=== PATIENT | female | born 2000 | race Caucasian/White ===

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

== ENCOUNTER 2018-01-21 13:23 | Emergency (ER) | payer SELFPAY ==
[2018-01-21 13:55] VITALS: BP 114/68
--- NOTE | 2018-01-21 15:26 | UC ---
Throat Pain/Nasal Vinh HPI - HPI Summary HPI Summary: Patient states she started with cold-like symptoms, cough and sore throat for a few days. Denies fever. States she had a bacterial pharyngitis a month ago. Denies taking any medications, Tobacco about 10 cigarettes a day. LMD today - History of Current Complaint Chief Complaint: UCGeneralIllness Stated Complaint: COUGH,SORE THROAT Time Seen by Provider: 01/21/18 15:02 Hx Obtained From: Patient Hx Last Menstrual Period: 01/21/18 ?: No Onset/Duration: Gradual Onset, Lasting Days Severity: Mild Pain Intensity: 0 Cough: Nonproductive Associated Signs & Symptoms: Positive: Nasal Discharge Related History: Smoking - Epiglottits Risk Factors Epiglottis Risk Factors: Negative - Allergies/Home Medications Allergies/Adverse Reactions: Allergies Allergy/AdvReac Type Severity Reaction Status Date / Time No Known Allergies Allergy Verified 01/21/18 13:47 Home Medications: Home Medications Phenylephrine HCl [Nasal [place]] 30 ml NS ONCE 01/21/18 [History Confirmed ] PMH/Surg Hx/FS Hx/Imm Hx Previously Healthy: Yes - Surgical History Surgical History: Yes Surgery Procedure, Year, and Place: CYST REMOVED FROM THROAT 2001 - Family History Known Family History: Positive: Other - depression, ETOH abuse, - Social History Alcohol Use: Daily Alcohol Amount: 1 drink/ day Substance Use Type: Marijuana Substance Use Comment - Amount & Last Used: smoke 1 bowl daily Smoking Status (MU): Heavy Every Day Tobacco Smoker Amount Used/How Often: 10 cigs/ day Household Exposure Type: Cigarettes - Immunization History Most Recent Influenza Vaccination: none recently Vaccination Up to Date: Yes Review of Systems ENT: Sore Throat, Nasal Discharge Respiratory: Cough All Other Systems Reviewed And Are Negative: Yes Physical Exam Triage Information Reviewed: Yes Appearance: Well-Appearing, Well-Nourished Vital Signs: Initial Vital Signs Temp 99.3 F 01/21/18 13:49 Pulse 86 01/21/18 13:49 Resp 16 01/21/18 13:49 BP 114/68 01/21/18 13:49 Pulse Ox 100 01/21/18 13:49 Vital Signs Reviewed: Yes Eyes: Positive: Conjunctiva Clear ENT: Positive: Normal ENT inspection, Pharynx normal, Nasal congestion, TMs normal Neck exam: Normal Neck: Positive: Supple, Nontender, No Lymphadenopathy Respiratory: Positive: Chest non-tender, Lungs clear, Normal breath sounds, No respiratory distress Cardiovascular: Positive: RRR, No Murmur, Pulses Normal, Brisk Capillary Refill Abdomen Description: Positive: Nontender Bowel Sounds: Positive: Present Throat Pain/Nasal Course/Dx - Course Course Of Treatment: Viral URI, continue oral hydration, tylenol if needed for myalgias/pain/fever more than 101.5F. - Differential Dx/Diagnosis Provider Diagnoses: viral URI Discharge - Discharge Plan Condition: Stable Disposition: HOME Patient Education Materials: How to Stop Smoking (ED), Viral Syndrome (ED) Forms: *Work Release Referrals: Miguel Angel Fabian MD [Primary Care Provider] -
== END 2018-01-21 15:38 | disposition home or self-care (01) ==
LOC: UCEAST 13:23
DX: J06.9 Acute upper respiratory infection, unspecified (principal); F17.210 Nicotine dependence, cigarettes, uncomplicated
CPT/HCPCS: 87651; 99211; G0463

== ENCOUNTER 2018-01-26 16:03 | Emergency (ER) | payer SELFPAY ==
[2018-01-26 16:48] VITALS: BP 112/56
--- NOTE | 2018-01-26 19:05 | UC ---
Raisa Ley Rebecca, scribed for Allan Gandhi MD on 01/26/18 at 1734 . Ear Complaint HPI - HPI Summary HPI Summary: Pt is a 17 y/o F who presents to [facility] c/o L ear pain. Pt reports that 5 days ago she had a Dx of viral URI, which has improved, though the patient began experiencing left ear pain this morning. Upon taking Ibuprofen, pain is now moderate, ranked 5/10. Sx alleviated by Ibuprofen, aggravated by nothing. Denies ear discharge, fever and difficulty swallowing. Is currently on menstrual period. PSHx tonsillectomy. SHx current smoker. - History of Current Complaint Chief Complaint: UCGeneralIllness Stated Complaint: EAR PAIN Time Seen by Provider: 01/26/18 16:55 Hx Obtained From: Patient Hx Last Menstrual Period: 01/22/18 Onset/Duration: Lasting Days - This morning, Still Present Severity Currently: Moderate Pain Intensity: 5 Pain Scale Used: 0-10 Numeric Aggravating Factors: Nothing Alleviating Factors: OTC Meds Associated Signs/Symptoms: Negative: Discharge Related History: Smoking - Allergies/Home Medications Allergies/Adverse Reactions: Allergies Allergy/AdvReac Type Severity Reaction Status Date / Time No Known Allergies Allergy Verified 01/26/18 16:42 Home Medications: Home Medications Ibuprofen TAB* [Motrin TAB* 800 MG] 800 mg PO ONCE 01/26/18 [History Confirmed 01/26/18] PMH/Surg Hx/FS Hx/Imm Hx - Additional Past Medical History Additional PMH: No PMHx HTN, DM, CAD - Surgical History Surgical History: Yes Surgery Procedure, Year, and Place: CYST REMOVED FROM THROAT 2001 - Family History Known Family History: Positive: Other - depression, ETOH abuse - Social History Alcohol Use: Daily Alcohol Amount: 1 drink/ day Substance Use Type: Marijuana Substance Use Comment - Amount & Last Used: smoke 1 bowl daily Smoking Status (MU): Heavy Every Day Tobacco Smoker Amount Used/How Often: 10 cigs/ day Household Exposure Type: Cigarettes - Immunization History Most Recent Influenza Vaccination: none recently Vaccination Up to Date: Yes Review of Systems Constitutional: Negative Skin: Negative Eyes: Negative ENT: Ear Ache - Left Respiratory: Negative Cardiovascular: Negative Gastrointestinal: Negative Genitourinary: Negative Motor: Negative Neurovascular: Negative Musculoskeletal: Negative Neurological: Negative Psychological: Negative All Other Systems Reviewed And Are Negative: Yes Physical Exam - Summary Physical Exam Summary: VITAL SIGNS: Reviewed. GENERAL: ~Patient is a well developed and nourished female who is lying comfortable in the stretcher. ~Patient is not in any acute respiratory distress. HEAD AND FACE: Normocephalic EYES: PERRLA, EOMI x 2. EARS: Hearing grossly intact. Left TM is erythematous and bulging. MOUTH: Oropharynx within normal limits. NECK: Supple, trachea is midline, no adenopathy, no JVD, no carotid bruit. CHEST: Symmetric, no tenderness at palpation LUNGS: Clear to auscultation bilaterally. No wheezing or crackles. CVS: Regular rate and rhythm, S1 and S2 present, no murmurs or gallops appreciated. ABDOMEN: Soft, non-tender. Bowel sounds are normal. No abdominal abnormal pulsations. EXTREMITIES: Full ROM in all major joints, no edema, no cyanosis or clubbing. NEURO: Alert and oriented x 3. No acute neurological deficits. Speech is normal and follows commands. SKIN: Dry and warm Triage Information Reviewed: Yes Vital Signs: Initial Vital Signs Temp 98.8 F 01/26/18 16:43 Pulse 72 01/26/18 16:43 Resp 18 01/26/18 16:43 BP 112/56 01/26/18 16:43 Pulse Ox 99 01/26/18 16:43 Vital Signs Reviewed: Yes Ear Complaint Course/Dx - Course Course Of Treatment: Pt is a 17 y/o F who presents to [facility] c/o L ear pain. Pt reports that 5 days ago she had a Dx of viral URI, which has improved, though the patient began experiencing left ear pain this morning. Upon taking Ibuprofen , pain is now moderate, ranked 5/10. Sx alleviated by Ibuprofen. Denies ear discharge, fever and difficulty swallowing. Is currently on menstrual period. PSHx tonsillectomy. SHx current smoker. PE reveals erythematous and bulging TM on the left side. Pt will be D/C to home with Dx of ear infection with Rx for amoxicillin and a followup with her PCP. She understands and agrees. - Differential Dx/Diagnosis Provider Diagnoses: Ear infection. Discharge - Sign-Out/Discharge Documenting (check all that apply): Discharge - Discharge Plan Condition: Stable Disposition: HOME Prescriptions: Amoxicillin PO (*) [Amoxicillin 875 MG (*)] 875 mg PO BID #20 tab Patient Education Materials: Ear Infection (ED) Referrals: Miguel Angel Fabian MD [Primary Care Provider] - Additional Instructions: Take medications as instructed Increase your fluid intake Return to the UC if symptoms worsen The documentation as recorded by the Raisa hough Rebecca accurately reflects the service I personally performed and the decisions made by me, Allan Gandhi MD.
== END 2018-01-26 17:13 | disposition home or self-care (01) ==
LOC: UCEAST 16:03
DX: H66.90 Otitis media, unspecified, unspecified ear (principal); F17.210 Nicotine dependence, cigarettes, uncomplicated; Z86.19 Personal history of other infectious and parasitic diseases
CPT/HCPCS: 99212; G0463

== ENCOUNTER 2018-02-02 18:43 | Emergency (ER) | payer SELFPAY ==
[2018-02-02 19:35] VITALS: BP 108/65
--- NOTE | 2018-02-02 19:35 | UC ---
Abdominal Pain Female HPI - HPI Summary HPI Summary: Patient to urgent care tonight complains of white vaginal discharge and itching. Also is complaining of frequent vomiting - History of Current Complaint Chief Complaint: UCGU Stated Complaint: VOMITING,PERSONAL Time Seen by Provider: 02/02/18 19:31 Hx Obtained From: Patient Hx Last Menstrual Period: 01/22/18 ?: Yes Onset/Duration: Sudden Onset - After treatment of otitis media with amoxicillin vaginal symptoms began Timing: Constant Severity Initially: Moderate Severity Currently: Moderate Radiates: No Character: Cramping Aggravating Factor(s): Food Alleviating Factor(s): Nothing Associated Signs and Symptoms: Positive: Nausea, Vomiting Allergies/Adverse Reactions: Allergies Allergy/AdvReac Type Severity Reaction Status Date / Time No Known Allergies Allergy Verified 02/02/18 19:35 PMH/Surg Hx/FS Hx/Imm Hx Previously Healthy: Yes - Surgical History Surgical History: Yes Surgery Procedure, Year, and Place: CYST REMOVED FROM THROAT 2001 - Family History Known Family History: Positive: Other - depression, ETOH abuse - Social History Occupation: Unemployed Lives: With Family Alcohol Use: Daily Alcohol Amount: 1 drink/ day Substance Use Type: Marijuana Substance Use Comment - Amount & Last Used: smoke 1 bowl daily Smoking Status (MU): Heavy Every Day Tobacco Smoker Amount Used/How Often: 10 cigs/ day Household Exposure Type: Cigarettes Cessation Counseling: Patient Advised to Stop - Immunization History Most Recent Influenza Vaccination: none recently Vaccination Up to Date: Yes Review of Systems Constitutional: Negative Skin: Negative Eyes: Negative ENT: Negative Respiratory: Negative Cardiovascular: Negative Gastrointestinal: Vomiting, Nausea Genitourinary: Negative Motor: Negative Neurovascular: Negative Musculoskeletal: Negative Neurological: Negative Psychological: Negative Is Patient Immunocompromised?: No All Other Systems Reviewed And Are Negative: Yes Physical Exam Triage Information Reviewed: Yes Appearance: Well-Appearing, No Pain Distress, Well-Nourished Vital Signs Reviewed: Yes Eye Exam: Normal Eyes: Positive: Conjunctiva Clear ENT Exam: Normal ENT: Positive: Normal ENT inspection, Hearing grossly normal - Was incredibly, Pharynx normal, Uvula midline. Negative: Nasal congestion, Nasal drainage, TMs normal, Trismus, Muffled voice, Hoarse voice, Sinus tenderness Dental Exam: Normal Neck exam: Normal Neck: Positive: Supple, Nontender, No Lymphadenopathy Respiratory Exam: Normal Respiratory: Positive: Chest non-tender, Lungs clear, Normal breath sounds, No respiratory distress, No accessory muscle use Cardiovascular Exam: Normal Cardiovascular: Positive: RRR, No Murmur, Pulses Normal, Brisk Capillary Refill Abdominal Exam: Normal Abdomen Description: Positive: Nontender, No Organomegaly, Soft. Negative: CVA Tenderness (R), CVA Tenderness (L), McBurney's Point Tenderness Bowel Sounds: Positive: Present Pelvic Exam: Positive: External Exam Normal, Other - Thick white vaginal discharge Musculoskeletal Exam: Normal Musculoskeletal: Positive: Strength Intact, ROM Intact, No Edema Neurological Exam: Normal Neurological: Positive: Alert, Muscle Tone Normal Psychological Exam: Normal Skin Exam: Normal Abd Pain Female Course/Dx - Course Course Of Treatment: Clotrimazole 1% vaginal cream. Smoking cessation information. Dietary changes for nausea vomiting morning sickness provided - Differential Dx/Diagnosis Provider Diagnoses: , nicotine dependent, vaginal candidiasis Discharge - Sign-Out/Discharge Documenting (check all that apply): Discharge - Discharge Plan Condition: Stable Disposition: HOME Prescriptions: Clotrimazole 1% VAGINAL CREAM* [Gyne-Lotrimin 1% VAGINAL CREAM*] 1 applic VAGINAL BEDTIME 7 Days #1 tube Pnv No.95/Ferrous Fum/Folic AC [ Vitamin & Minera 28-0.8 mg] 1 tab PO BEDTIME #30 tab Patient Education Materials: Yeast Infection (ED) Forms: *Gen. Provider Communication Referrals: Steven Pleitez CNM [Certified Nurse Auto Hauler] - If Needed - Billing Disposition and Condition Condition: STABLE Disposition: HOME
== END 2018-02-02 20:45 | disposition home or self-care (01) ==
LOC: UCEAST 18:43
DX: O98.819 Other maternal infectious and parasitic diseases complicating pregnancy, unspecified trimester (principal); B37.3 Candidiasis of vulva and vagina; O21.9 Vomiting of pregnancy, unspecified; Z3A.00 Weeks of gestation of pregnancy not specified; F17.210 Nicotine dependence, cigarettes, uncomplicated
CPT/HCPCS: 81003; 84702; 87086; 87480; 87491; 87510; 87591; 87661; 99212; G0463

== ENCOUNTER 2018-03-04 14:58 | Emergency (ER) | payer MEDICAID ==
[2018-03-04 15:19] VITALS: BP 118/72
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
== END 2018-03-04 15:40 | disposition home or self-care (01) ==
LOC: UCEAST 14:58
DX: O26.899 Other specified pregnancy related conditions, unspecified trimester (principal); N61.0 Mastitis without abscess; L03.316 Cellulitis of umbilicus; F41.9 Anxiety disorder, unspecified; F32.9 Major depressive disorder, single episode, unspecified; F17.210 Nicotine dependence, cigarettes, uncomplicated
CPT/HCPCS: 99212; G0463

== ENCOUNTER 2018-03-23 18:22 | Emergency (ER) | payer MEDICAID ==
[2018-03-23 18:40] VITALS: BP 105/70
--- NOTE | 2018-03-23 19:18 | UC ---
Marilin Ley Julia, scribed for Allan Gandhi MD on 03/23/18 at 1903 . General HPI - HPI Summary HPI Summary: This patient is a 17 year old F presenting to [facility] with multiple complaints. Patient reports low back pain that is worse on the right with radiation into the buttock and posterior leg. Pain rated 3/30 in severity. Patient additionally c/o discharge coming from nipple piercings for the past couple days. A week and half ago patient had an infection of the nipple piercings. The infection got better with antibiotics. It was previously recommended to remove piercings, but the patient did not. Patient is 13 weeks ; . - History of Current Complaint Chief Complaint: UCLowerExtremity Stated Complaint: LEG COMPLAINT Time Seen by Provider: 03/23/18 18:45 Hx Obtained From: Patient Hx Last Menstrual Period: 13 weeks Onset/Duration: Gradual Onset, Still Present Pain Intensity: 3 Pain Location at: low back Pain Radiates to: right buttock and leg Associated Signs & Symptoms: Positive: Back Pain, Other - nipple discharge Similar Episode/Dx as: piercing infection - Allergy/Home Medications Allergies/Adverse Reactions: Allergies Allergy/AdvReac Type Severity Reaction Status Date / Time No Known Allergies Allergy Verified 03/23/18 18:40 PMH/Surg Hx/FS Hx/Imm Hx Previously Healthy: Yes - Surgical History Surgical History: Yes Surgery Procedure, Year, and Place: CYST REMOVED FROM THROAT 2001 - Family History Known Family History: Positive: Other - depression, ETOH abuse - Social History Alcohol Use: None Alcohol Amount: 1 drink/ day Substance Use Type: None Substance Use Comment - Amount & Last Used: smoke 1 bowl daily Smoking Status (MU): Former Smoker Amount Used/How Often: 10 cigs/ day Household Exposure Type: Cigarettes - Immunization History Most Recent Influenza Vaccination: none recently Vaccination Up to Date: Yes Review of Systems Constitutional: Negative Skin: Other - nipple piercing discharge Musculoskeletal: Myalgia - back pain All Other Systems Reviewed And Are Negative: Yes Physical Exam - Summary Physical Exam Summary: VITAL SIGNS: Reviewed. GENERAL: Patient is a well-developed and nourished female who is lying comfortable in the stretcher. Patient is not in any acute respiratory distress. HEAD AND FACE: Normocephalic EYES: PERRLA, EOMI x 2. EARS: Hearing grossly intact. MOUTH: Oropharynx within normal limits. NECK: Supple, trachea is midline, no adenopathy, no JVD, no carotid bruit. CHEST: Symmetric, no tenderness at palpation LUNGS: Clear to auscultation bilaterally. No wheezing or crackles. CVS: Regular rate and rhythm, S1 and S2 present, no murmurs or gallops appreciated. ABDOMEN: Soft, non-tender. Bowel sounds are normal. No abdominal abnormal pulsations. EXTREMITIES: Full ROM in all major joints, no edema, no cyanosis or clubbing. [place] NEURO: Alert and oriented x 3. No acute neurological deficits. Speech is normal and follows commands. SKIN: Dry and warm Breast: Right breast without discharge or tenderness, Left breast tenderness without active discharge, but with dried yellow discharge around nipple piercing. Chelita was present as automatic print developer for exam Triage Information Reviewed: Yes Vital Signs: Initial Vital Signs Temp 99.2 F 03/23/18 18:32 Pulse 87 03/23/18 18:32 Resp 16 03/23/18 18:32 BP 105/70 03/23/18 18:32 Pulse Ox 100 03/23/18 18:32 Vital Signs Reviewed: Yes Course/Dx - Course Course Of Treatment: In the physical examination revealed a slight cellulitis over the left breast, I would place the patient on Keflex. I also related that the patient has a slight sciatica. Patient will be taken Tylenol since the patient is . The patient understands and agrees. She was instructed to return to the urgent care or go to the ER if the symptoms worsen. CONCERNS WERE ADDRESSED AND SHE HAS NO OTHER QUESTIONS. - Differential Dx - Multi-Symptom Provider Diagnoses: Cellulitis. Sciatica. Discharge - Sign-Out/Discharge Documenting (check all that apply): Discharge/Admit/Transfer - Discharge Plan Condition: Stable Disposition: HOME Prescriptions: Cephalexin CAP* [Keflex CAP*] 500 mg PO TID #28 cap Patient Education Materials: Cellulitis (ED), Low Back Strain (ED) Referrals: Miguel Angel Fabian MD [Primary Care Provider] - Additional Instructions: Take medications as instructed Increase your fluid intake Return to the if symptoms worsen - Billing Disposition and Condition Condition: STABLE Disposition: HOME The documentation as recorded by the Marilin hough Julia accurately reflects the service I personally performed and the decisions made by me, Allan Gandhi MD.
== END 2018-03-23 19:16 | disposition home or self-care (01) ==
LOC: UCEAST 18:22
DX: M54.41 Lumbago with sciatica, right side (principal); N61.0 Mastitis without abscess; Z87.891 Personal history of nicotine dependence
CPT/HCPCS: 99212; G0463

== ENCOUNTER 2018-08-23 17:45 | Emergency (ER) | payer SELFPAY ==
[2018-08-23 20:26] LABS: Urine Appearance Cloudy; Urine Blood Negative (Negative); Urine Color Yellow; Urine Ketones Trace (Negative); Urine Protein Negative (Negative); Urine Red Blood Cell Trace(0-2/hpf) (Absent); Urine Specific Gravity 1.017 (1.010-1.030); Urine Urobilinogen Negative (Negative); Urine White Blood Cell Trace(0-5/hpf) (Absent)
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
[2018-08-23 20:57] VITALS: BP 116/69
== END 2018-08-23 20:56 | disposition home or self-care (01) ==
LOC: ED 17:45
DX: R10.9 Unspecified abdominal pain (principal); Z87.891 Personal history of nicotine dependence; Z34.93 Encounter for supervision of normal pregnancy, unspecified, third trimester; V89.2XXA Person injured in unspecified motor-vehicle accident, traffic, initial encounter; Y92.9 Unspecified place or not applicable
CPT/HCPCS: 81003; 81015; 87086; 99282

== ENCOUNTER 2018-09-15 07:52 | Inpatient (IN) | payer OTHER ==
[2018-09-15] MEDS ORDERED: Promethazine INJ(RESTRICTED)* 25 MG/ML 1 ML VIAL IV ONE (09:35)
[2018-09-15] MEDS ORDERED: Nalbuphine* 10 MG/ML 1 ML VIAL IV ONE (09:35)
--- NOTE | 2018-09-15 09:44 | PN ---
L&D Outpatient: Visit - Reproductive Information Estimated Due Date: 09/25/18 Gestational Age: 38 Weeks and 4 Days : 1 Para: 0 - Reason for Visit Visit Reason: contractions since 0300 - Antepartal Records Antepartal Record: Reviewed, Uncomplicated - Patient History Patient History Significant: No Review of Systems Constitutional: Uncomfortable CV Complaint: No Respiratory: Shortness of Breath: No Gastrointestinal: No Nausea/Vomiting, Normal Bowel Movement Genitourinary: No Leaking Fluid Musculoskeletal: Contractions Neurological: No Headache Movement: Normal L&D Outpatient: Exam Vitals - Most Recent: 98.2-76-20 123/71 - Cervical Exam Cervical Exam: posterior, ? 1 cm, thick, vtx -1 - Abdominal Exam Abdomen Exam: Non-Tender - Membranes Membrane Status: Intact - Ultrasound/Biophysical Profile Ultrasound Status: Not Done EFM Findings - External Monitor Findings Baseline Heart Rate: 135 External Monitor Findings: Accelerations Present, No Pattern of Variable or Late Decelerations, Variability Moderate, Baseline Stable External Monitor Findings Comment: category 1 Contractions: Irregular, Moderate L&D Outpatient: Asses/Plan Assessment: primip at 38 wk 4 d, ? early labor vs false labor Uncomfortable, requesting pain medication Plan: Continue Observation - will hydrate, medicate, recheck in 2-4 hours
[2018-09-15] MEDS ORDERED: Promethazine INJ(RESTRICTED)* 25 MG/ML 1 ML VIAL ONE (09:52)
[2018-09-15] MEDS ORDERED: Nalbuphine* 10 MG/ML 1 ML VIAL ONE (09:52)
--- NOTE | 2018-09-15 13:05 | HP ---
General Information - Reason for Visit labor - General Information Maternal Age: 18 Grav: 1 Para: 0 Estimated Due Date: 09/25/18 Determined By: Early Ultrasound Gestational Age in Weeks/Days: 38w 3d Maternal Blood Type and Rh: O Positive - Results this Serology/RPR Result: Non-Reactive Rubella Result: Immune HBsAg Result: Negative HIV Result: Negative GBS Culture Result: Negative Past Medical History Past Medical History Comment: Hx depression/anxiety--no meds at present Past Surgical History Comment: removal of cyst from throat (2001) Pertinent Family History: See Records - Antepartal Records Antepartal Records: Reviewed, Uncomplicated Review of Systems Constitutional: Uncomfortable CV Complaint: No Respiratory: Shortness of Breath: No Gastrointestinal: Soft Stool Genitourinary: No Leaking Fluid Musculoskeletal: Contractions Neurological: No Headache Movement: Normal Exam Allergies/Adverse Reactions: Allergies No Known Allergies Allergy (Verified 03/23/18 18:40) - Measurements Height: 5 ft 7 in Weight: 172 lb Weight in lbs: 172.140066 Body Mass Index (BMI): 26.9 Pre- Weight: 120 lb - Exam Breast: - - soft, no masses Extremities: No Edema Heart: Normal Rhythm/Heart Sounds HEENT: No Significant Findings Lungs: Clear Bilaterally Reflexes: DTR 2+ Thyroid: No Thyromegaly - Abdominal Exam Abdomen Exam: Non-Tender Targeted Exam Findings See L&D Outpatient Visit Provider Note for Findings: Yes Estimated Weight: EFW 7.5 lbs Cervical Exam: 5cm Effacement: 90% Station: 0 Presenting Part: Vertex Membrane Status: Bulging EFM Findings - External Monitor Findings Baseline Heart Rate: 130 External Monitor Findings: Accelerations Present, No Pattern of Variable or Late Decelerations, Variability Moderate, Baseline Stable External Monitor Findings Comment: category 1 Contractions: Moderate Contraction Frequency: q 4-7 Assessment/Plan - Assessment primip at 38 w 3 days in labor after therapeutic rest - Plan Plan: Admit - Anticipate Vaginal Delivery Plan Comment: will prepare for epidural - Date/Time of Admission Date of Admission: 09/15/18 Time of Admission: 13:00
[2018-09-15] MEDS ORDERED: OBEPIDURAL* 250 ML EPIDURAL ONE (13:09)
[2018-09-15 13:30] LABS: ABS Basophils 0 10^3/ul (0-0.2); ABS Eosinophils 0.1 10^3/ul (0-0.6); ABS Lymphocytes 1.7 10^3/ul (1.0-4.8); ABS Monocytes 0.7 10^3/ul (0-0.8); ABS Neutrophils 9.3 10^3/ul (1.5-7.7); ABS Nucleated RBC 0 10^3/ul; Eosinophil % 0.7 % (0-6); Hematocrit 35 % (35-47); Hemoglobin 11.7 g/dl (12.0-16.0); Lymphocyte % 14.1 % (25-47); Mean Corpuscular HGB Conc 34 g/dl (31-36); Mean Corpuscular Hemoglobin 30 pg (27-31); Mean Corpuscular Volume 91 fL (80-97); Mean Platelet Volume 9.8 fL (7.4-10.4); Nucleated Red Blood Cells % 0; Platelet Count 198 10^3/ul (150-450); Red Blood Count 3.84 10^6/ul (4.00-5.40); Red Cell Distribution Width 14 % (10.5-15); White Blood Count 11.8 10^3/ul (3.5-10.8)
[2018-09-15] MEDS ORDERED: Phenylephrine IV* 40 MCG/ML 10 ML SYRINGE IV PUSH PRN ×2 (14:19)
[2018-09-15] MEDS ORDERED: Sodium Citrate/Citric Acid* 15 ML UDC PO PRN (14:19)
[2018-09-15] MEDS ORDERED: Famotidine TAB* 20 MG PO PRN (14:19)
[2018-09-15] MEDS ORDERED: EPHEDrine (Pressors)* 50 MG/ML VIAL IV PUSH PRN ×2 (14:19)
[2018-09-15] MEDS ORDERED: OBEPIDURAL* 250 ML EPIDURAL SCH (15:00)
[2018-09-15] MEDS ORDERED: Oxytocin in LR* 20 UNITS/1,000 ML BAG IVPB ONE (19:03)
[2018-09-15] MEDS ORDERED: Witch Hazel PAD* JAR TOPICAL PRN (20:15)
[2018-09-15] MEDS ORDERED: Glycerin ADULT SUPP PR PRN (20:15)
[2018-09-15] MEDS ORDERED: Dibucaine 1% 28.35 GM TUBE PR PRN (20:15)
--- NOTE | 2018-09-15 20:23 | PROCNOTE ---
[facility] OB: Delivery Note - Delivery A Date of : 09/15/18 Time of : 19:53 [place] Sex: Female Score 1 Minute: 8 Score 5 Minutes: 9 Gestational Age in Weeks and Days at Delivery: 38 Weeks and 4 Days Delivery Method: Spontaneous Vaginal Labor: Spontaneous Amniotic Fluid: Clear Estimated Blood Loss: 100 Anesthesia/Analgesia: CEI for Labor Delivered By: Dulce Burnett - Nursery Level of Nursery: Regular/Bedside - Perineum Perineal Injury: 1st Degree Perineal Injury Comment: 1st deg Left sulcus laceration - Events Delivery Events of Note: Pitocin During Labor, Supplemental O2 to Mother - Additional Delivery Notes Additional Delivery Notes: SVB LFC, OA, over left vaginal sulcus laceration. Infant pink with stimulation. Placenta Maciej. FF with massage, IV with pitocin running. EBL 100cc. Mother and baby in good condition
[2018-09-15] MEDS: Ibuprofen TAB* 600 MG PO PRN (20:57)
[2018-09-15] MEDS ORDERED: Oxytocin in LR* 20 UNITS/1,000 ML BAG IVPB SCH (21:00)
[2018-09-15] MEDS ORDERED: Ammonia Inhalant* 1 EA AMP ONE (21:29)
[2018-09-15] MEDS: Docusate CAP* 100 MG PO SCH (23:08)
[2018-09-16] MEDS: Acetaminophen TAB* 325 MG PO PRN ×3 (02:20→20:00)
[2018-09-16] MEDS: Ibuprofen TAB* 600 MG PO PRN ×4 (03:07→22:21)
[2018-09-16 06:44] LABS: Hematocrit 34 % (35-47); Hemoglobin 11.4 g/dl (12.0-16.0); Mean Corpuscular HGB Conc 34 g/dl (31-36); Mean Corpuscular Hemoglobin 30 pg (27-31); Mean Corpuscular Volume 90 fL (80-97); Mean Platelet Volume 9.8 fL (7.4-10.4); Platelet Count 185 10^3/ul (150-450); Red Blood Count 3.74 10^6/ul (4.00-5.40); Red Cell Distribution Width 13 % (10.5-15); White Blood Count 13.9 10^3/ul (3.5-10.8)
[2018-09-16] MEDS: Docusate CAP* 100 MG PO SCH ×3 (08:21→20:00)
[2018-09-16] MEDS ORDERED: Ferrous Gluconate TAB* 324 MG TAB PO SCH (09:00)
[2018-09-17] MEDS: Ibuprofen TAB* 600 MG PO PRN (06:22)
[2018-09-17 07:47] VITALS: BP 130/63
[2018-09-17] MEDS: Docusate CAP* 100 MG PO SCH (09:58)
[2018-09-17] MEDS: Acetaminophen TAB* 325 MG PO PRN (10:08)
== END 2018-09-17 13:00 | disposition home or self-care (01) | DRG 560 ==
LOC: MCHOBOUT 07:52 → MCHOB 12:55
PROVIDERS: ADMIT Midwife; ATTEND Midwife
PROC: 10E0XZZ Delivery of Products of Conception, External Approach (ICD-10-PCS; principal; 2018-09-15)
PROC: 10907ZC Drainage of Amniotic Fluid, Therapeutic from Products of Conception, Via Natural or Artificial Opening (ICD-10-PCS; 2018-09-15)
PROC: 0HQ9XZZ Repair Perineum Skin, External Approach (ICD-10-PCS; 2018-09-15)
DX: O60.23X1 Term delivery with preterm labor, third trimester, fetus 1 (principal); Z37.0 Single live birth; O99.344 Other mental disorders complicating childbirth; F41.8 Other specified anxiety disorders; O71.89 Other specified obstetric trauma; Z3A.38 38 weeks gestation of pregnancy
CPT/HCPCS: 36415; 85025; 85027; 86850; 86900; 86901; A9270-GY; J2300; J2550

== ENCOUNTER 2019-01-06 16:46 | Emergency (ER) | payer OTHER ==
[2019-01-06 17:39] VITALS: BP 115/64
--- NOTE | 2019-01-06 17:42 | UC ---
Upper Extremity HPI - HPI Summary HPI Summary: 18-year-old female comes in with a chief complaint of right arm pain where she had her nexplanon placed. It was placed 2 months ago. Patient has had some pain in the area ever since. She is a 4-month-old daughter and when she breast- feeds her daughter puts pressure on the arm at the site of the implant. There is no erythema there is no warmth to the area there is no drainage. Occasionally she gets some shooting pains going up and down her arm apparently originating from the implant site. Patient also has a complaint of her left second toe having an ingrown toenail that infected. Been going on for 5 days. She's been soaking which does seem to be helping. - History of Current Complaint Stated Complaint: ARM COMPLAINT Time Seen by Provider: 01/06/19 17:27 Hx Last Menstrual Period: 13 weeks - Allergies/Home Medications Allergies/Adverse Reactions: Allergies Allergy/AdvReac Type Severity Reaction Status Date / Time No Known Allergies Allergy Verified 03/23/18 18:40 Home Medications: Home Medications Etonogestrel [Nexplanon] 68 mg SQ DAILY 01/06/19 [History Confirmed 01/06/19] PMH/Surg Hx/FS Hx/Imm Hx Previously Healthy: Yes - Surgical History Surgical History: Yes Surgery Procedure, Year, and Place: CYST REMOVED FROM THROAT 2001 - Family History Known Family History: Positive: Other - depression, ETOH abuse - Social History Alcohol Use: None Alcohol Amount: 1 drink/ day Substance Use Type: Marijuana Substance Use Comment - Amount & Last Used: Reports no use, previous positive urine for Marijuana Smoking Status (MU): Former Smoker Amount Used/How Often: 10 cigs/ day Household Exposure Type: Cigarettes - Immunization History Most Recent Influenza Vaccination: none recently Most Recent Pneumonia Vaccination: unknown Vaccination Up to Date: Yes Review of Systems All Other Systems Reviewed And Are Negative: Yes Constitutional: Positive: Negative Skin: Positive: Other - see hpi Eyes: Positive: Negative ENT: Positive: Negative Respiratory: Positive: Negative Cardiovascular: Positive: Negative Gastrointestinal: Positive: Negative Motor: Positive: Negative Neurovascular: Positive: Negative Musculoskeletal: Positive: Other: - see hpi Neurological: Positive: Negative Psychological: Positive: Negative Is Patient Immunocompromised?: No Physical Exam Triage Information Reviewed: Yes Appearance: Well-Appearing, No Pain Distress, Well-Nourished Vital Signs Reviewed: Yes Eye Exam: Normal Eyes: Positive: Conjunctiva Clear Neck exam: Normal Neck: Positive: Supple Respiratory: Positive: No respiratory distress Musculoskeletal: Positive: Other: - NEXPLANON IN PLACE UNDER THE SKIN OF MEDIAL RT UPPER ARM. NO ERYHTEMA. MILD TENDERNESS TO PALPATION. NO FLUCTUANCE. Normal pulses, normal capillary refill no sensation deficit of the arm. Arm has full strength and range of motion. Neurological Exam: Normal Neurological: Positive: Alert, Muscle Tone Normal Psychological Exam: Normal Psychological: Positive: Normal Response To Family, Age Appropriate Behavior Skin: Positive: Other - LEFT SECOND TOE HAS DRAINAGE FROM A LATERAL INGROWN TOENAIL. NO STREAKING. Upper Extremity Course/Dx - Course Course Of Treatment: Patient will follow-up with her [facility] concerning the implant. - Differential Dx/Diagnosis Provider Diagnosis: Paronychia of second toe, left, Nexplanon in place Discharge - Sign-Out/Discharge Documenting (check all that apply): Patient Departure All imaging exams completed and their final reports reviewed: No Studies - Discharge Plan Condition: Stable Disposition: HOME Prescriptions: Cephalexin CAP* [Keflex CAP*] 500 mg PO TID #30 cap Patient Education Materials: Etonogestrel (Implant), Paronychia (ED) Referrals: Miguel Angel Fabian MD [Primary Care Provider] - [facility] [Provider Group] Additional Instructions: FOLLOW UP WITH [facility] FOR FURTHER EVALUATION OF YOUR IMPLANT. GET RECHECKED FOR ANY WORSENING OF YOUR CONDITION OR QUESTIONS OR CONCERNS. - Billing Disposition and Condition Condition: STABLE Disposition: Home
== END 2019-01-06 17:45 | disposition home or self-care (01) ==
LOC: UCEAST 16:46
DX: L03.032 Cellulitis of left toe (principal); Z87.891 Personal history of nicotine dependence
CPT/HCPCS: 99212; G0463

== ENCOUNTER 2019-03-06 21:07 | Emergency (ER) | payer OTHER ==
[2019-03-06 21:16] VITALS: BP 127/57
--- NOTE | 2019-03-06 21:43 | UC ---
Dizzy HPI HPI Summary: Ms. Garrison has been having episodes of sudden flushing and headaches that are short lived for a few months now. Additionally to that in the last few days she 's had episodes where the room feels like it's moving some. The moving symptom is what brings her in tonight. She denies any recent URI but does state that she thinks she has some allergies and congestion from that. - History Of Current Complaint Chief Complaint: UCDizziness Stated Complaint: DIZZY Time Seen by Provider: 03/06/19 21:26 Hx Obtained From: Patient Hx Last Menstrual Period: 1 WEEK AGO (HAS CONTROL IMPLANT) ?: No Onset/Duration: Gradual Onset Timing: Intermittent Episode Lasting Severity Initially: Mild Severity Currently: Mild Pain Intensity: 3 Character: Unable To Describe - room seems to move some Aggravating Factor(s): Nothing Alleviating Factor(s): Nothing Associated Signs And Symptoms: Positive: Diaphoresis - Allergies/Home Medications Allergies/Adverse Reactions: Allergies Allergy/AdvReac Type Severity Reaction Status Date / Time No Known Allergies Allergy Verified 03/06/19 21:15 PMH/Surg Hx/FS Hx/Imm Hx Previously Healthy: Yes - Surgical History Surgical History: Yes Surgery Procedure, Year, and Place: CYST REMOVED FROM THROAT 2001 - Family History Known Family History: Positive: Other - depression, ETOH abuse - Social History Alcohol Use: Weekly Alcohol Amount: 1 drink/WEEK Substance Use Type: Marijuana Substance Use Comment - Amount & Last Used: Reports no use, previous positive urine for Marijuana Smoking Status (MU): Current Every Day Smoker Type: Cigarettes Amount Used/How Often: 4 cigs/ day Household Exposure Type: Cigarettes - Immunization History Most Recent Influenza Vaccination: none recently Most Recent Pneumonia Vaccination: unknown Vaccination Up to Date: Yes Review of Systems All Other Systems Reviewed And Are Negative: Yes Physical Exam - Summary Physical Exam Summary: She is nontoxic in appearance with stable vital signs Triage Information Reviewed: Yes Appearance: Well-Appearing Vital Signs: Initial Vital Signs Temp 97.9 F 03/06/19 21:11 Pulse 71 03/06/19 21:11 Resp 16 03/06/19 21:11 BP 127/57 03/06/19 21:11 Pulse Ox 99 03/06/19 21:11 Vital Signs Reviewed: Yes Eye Exam: Normal - No nystagmus ENT Exam: Normal Neck exam: Normal Respiratory Exam: Normal Cardiovascular Exam: Normal Abdominal Exam: Normal Neurological Exam: Normal Psychological Exam: Normal Skin Exam: Normal Dizzy Course/Dx - Course Course Of Treatment: Her exam is unremarkable and her history seems to suggest a peripheral vertigo.I recommended that we give her meclizine to try and get her follow-up with her PCP. I don't think anything dangerous happening at this time. - Differential Dx/Diagnosis Provider Diagnosis: Vertigo Discharge - Sign-Out/Discharge Documenting (check all that apply): Patient Departure All imaging exams completed and their final reports reviewed: No Studies - Discharge Plan Condition: Stable Disposition: HOME Patient Education Materials: Vertigo (ED) Referrals: Miguel Angel Fabian MD [Primary Care Provider] - - Billing Disposition and Condition Condition: STABLE Disposition: Home
== END 2019-03-06 21:56 | disposition home or self-care (01) ==
LOC: UCEAST 21:07
DX: R42 Dizziness and giddiness (principal); R61 Generalized hyperhidrosis; F17.210 Nicotine dependence, cigarettes, uncomplicated
CPT/HCPCS: 99212; G0463

== ENCOUNTER 2019-09-10 16:25 | Emergency (ER) | payer SELFPAY ==
[2019-09-10 16:37] VITALS: BP 131/66
--- NOTE | 2019-09-10 16:54 | UC ---
Throat Pain/Nasal Vinh HPI - HPI Summary HPI Summary: Patient presents to urgent care reporting progressive discomfort in his left ear. Patient states she's had some mild sinus congestion postnasal drip. Patient states today she has some discomfort in her left ear. Patient states she feels like there is water in pressure. No drainage. Patient has not taken any [id number] medications. Patient does have a history of vertigo sutures been feeling dyspneic getting a little worse her last couple days. Patient does smoke cigarettes. Patient does smoke marijuana. Patient without any other complaints. No sore throat. No cough or shortness of breath. Patient works at [employer] and denies sick contacts. He is without a history of ear or sinus surgery. Patient's medications review this visit. Patient states she is not . Patient is not breast feeding her that she has in the room. - History of Current Complaint Chief Complaint: UCEar Stated Complaint: EAR ACHE Time Seen by Provider: 09/10/19 16:33 Hx Obtained From: Patient Hx Last Menstrual Period: 1 MONTH AGO Pain Intensity: 3 - Allergies/Home Medications Allergies/Adverse Reactions: Allergies Allergy/AdvReac Type Severity Reaction Status Date / Time No Known Allergies Allergy Verified 09/10/19 16:35 PMH/Surg Hx/FS Hx/Imm Hx Previously Healthy: Yes - Surgical History Surgical History: Yes Surgery Procedure, Year, and Place: CYST REMOVED FROM THROAT 2001 - Family History Known Family History: Positive: Other - depression, ETOH abuse, Non-Contributory - Social History Occupation: Employed Full-time Lives: With Family Alcohol Use: Occasionally Alcohol Amount: 1 drink/WEEK Substance Use Type: Marijuana Substance Use Comment - Amount & Last Used: ONCE WEEKLY Smoking Status (MU): Current Every Day Smoker Type: Cigarettes Amount Used/How Often: 2 CIGS PER DAY Household Exposure Type: Cigarettes - Immunization History Most Recent Influenza Vaccination: none recently Most Recent Pneumonia Vaccination: unknown Vaccination Up to Date: Yes Review of Systems All Other Systems Reviewed And Are Negative: Yes Constitutional: Positive: Negative ENT: Positive: Ear Ache, Nasal Discharge, Sinus Congestion Respiratory: Positive: Negative Cardiovascular: Positive: Negative Gastrointestinal: Positive: Negative Physical Exam - Summary Physical Exam Summary: Vital Signs Reviewed: Yes A+Ox3, no distress Eyes: Conjunctiva Clear, THOM. EOM intact and full, no nystagmus ENT: Hearing grossly normal right TM wnl left TM ++ fluid mild erythema, no buldge; turbinates inflammed, + PND, mmoist, uvula midline, no exudate, no erythema Neck: Positive: Supple, no lymphedema Respiratory: Positive: No respiratory distress, No accessory muscle use + CTA throughout no w/r Cardiovascular: RRR nl s1, s2 no m/r CBT <2 sec abd soft + BS nt/nd no guarding, no distension Musculoskeletal Exam: XIONG x 4 without difficulty Strength Intact, ROM Intact Neurological: Positive: Alert, + sensation throughout Psychological: Positive: Normal Response To examiner Skin: Positive: no rash, no ecchymosis Triage Information Reviewed: Yes Vital Signs: Initial Vital Signs Temp 98.9 F 09/10/19 16:35 Pulse 61 09/10/19 16:35 Resp 18 09/10/19 16:35 BP 131/66 09/10/19 16:35 Pulse Ox 100 09/10/19 16:35 Throat Pain/Nasal Course/Dx - Course Course Of Treatment: Pt presents to for evaluation of her left ear. Pt states has had sinus congestion with mild PND. Pt states has been feeling water sound in left ear with pressure. no drainage VSS On exam, pt with sinus congestion and PND. Pt with serous otitis media on left reviewed with pt will Rx flonase, decongestant If sx persist - recomend start abx hydrate secretion precaution pt comfortable and in agreement with plan - Differential Dx/Diagnosis Provider Diagnosis: Rhinosinusitis, Left acute serous otitis media Discharge ED - Sign-Out/Discharge Documenting (check all that apply): Patient Departure All imaging exams completed and their final reports reviewed: No Studies - Discharge Plan Condition: Stable Disposition: HOME Prescriptions: Amoxicillin/Clavulanate TAB* [Augmentin TAB 875*] 875 mg PO BID #14 tab Fluticasone NASAL SPRAY 50MCG* [Flonase NASAL SPRAY 50MCG*] 2 spray BOTH NARES DAILY #1 btl Patient Education Materials: Sinusitis (ED), Serous Otitis Media (ED) Referrals: Miguel Angel Fabian MD [Primary Care Provider] - Additional Instructions: - Stay well hydrated. Drink plenty of non-alcoholic, non-caffinated beverages. - Alternate ibuprofen (Advil, Motrin) 600mg and Tylenol every 3 hours for pain or fever. Take with food. Do NOT take for more than 4-5 days. - okay to take over the counter decongestant and cough medication (Claritin-D, arlette-D, zyrtec-D) - use nasal spray as prescribed - If your symptoms persist or get worse, it is recommended you start the antibiotics as prescribed. - These infections are spread by secretions - do NOT share eating or drinking utensils - clean items you share with other people such as cell phones, computer mouse, TV remote, computer tablets,etc. Once you have been antibiotics for 2 days, change your toothbrush and your pillowcase. - get plenty of restful sleep - humidify the air in the room where you sleep - boil water, run a hot steam shower, vaporizer, cups of water by heat register - contact your doctor or return with questions or concerns - Billing Disposition and Condition Condition: STABLE Disposition: Home
== END 2019-09-10 17:03 | disposition home or self-care (01) ==
LOC: UCEAST 16:25
DX: H65.02 Acute serous otitis media, left ear (principal); J32.9 Chronic sinusitis, unspecified; F17.210 Nicotine dependence, cigarettes, uncomplicated
CPT/HCPCS: 99212; G0463

== ENCOUNTER 2019-09-18 17:12 | Emergency (ER) | payer SELFPAY ==
[2019-09-18 17:17] VITALS: BP 0/0
== END 2019-09-18 18:04 | disposition left against medical advice (07) ==
LOC: ED 17:12
DX: Z53.21 Procedure and treatment not carried out due to patient leaving prior to being seen by health care provider (principal); R07.9 Chest pain, unspecified
CPT/HCPCS: 93005; 99282